=== PATIENT | male | born 1980 | race African-American/Black ===

== ENCOUNTER → 2018-06-20 | Outpatient (CLI) | payer OTHER ==
[~2018-06-20] MED LIST: ALBU2.5V8 INH; AMLO1CAP15 PO; BUPR200T PO; DOCU100C28 PO; DOXY100C2 PO; EMTR1TAB12 PO; ERGO500027 PO; FEXO180T16 PO; FLUT16SP NS; MELO15TA23 PO; POLY255P11 PO; TOPI100T8 PO; TRAZ-118 PO
--- NOTE | 2018-06-21 13:30 | PAIN ---
DATE OF SERVICE: 06/20/2018 INITIAL CONSULTATION FOR PAIN CLINIC CHIEF COMPLAINT: Neck and bilateral upper extremities pain. HISTORY OF PRESENT ILLNESS: This is a 38-year-old male who presents today with history of pain in the base of neck, bilateral upper extremities for many years, worse over the past one year or so without any specific injury or action he is aware of, but a lot of wear and tear as he puts it over the years. The patient is active , reports this has exacerbated the pain significantly as well and he has had some injuries to the shoulders with a rotator cuff repair on the right. The patient reports main pain now is at the base of the neck and upper extremities radiating to bilateral upper extremities in a radicular fashion into the arms, mostly in the biceps and forearms anteriorly, some in the posterior deltoid as well. Pain in the hands, there is numbness and tingling in both of the hands, difficulty using fine motor movements, also had been dropping items especially with this right hand with no overt motor loss, but significant weakness, fatigability. The patient reports pain is constant, sharp, stabbing, shooting, throbbing with numbness and radiating as noted, intermittent in intensity, but is present all the time. The patient reports it is cramping, aching. Also, has a cold sensation in the arms and hands as well as the base of the neck and shoulders. The patient reports it awakens him from sleep at least 4 times a night and does affect his ability to walk at times also. The patient has had physical therapy; he has done chiropractic treatment as well without significant improvement and is over here with symptoms in the last few months. The patient did have an MRI scan, which is pending at time of this dictation, but the patient's referring physician has narrative showing multiple levels of degenerative joint disease and degenerative disk disease in the cervical and thoracic spine. The patient reports a disability rate from 0-10, 10 being the worst, is 6 with family and home responsibilities, social activity, self-care and life support activities, 7 with recreation, occupation and sexual behavior. The patient reports again no loss of motor function with significant fatigability of the upper extremities with activity, better with sitting, lying and resting or putting his arm on the arm of the chair or to his sides when reclining or lying down. PAST MEDICAL HISTORY: Significant for hypertension, shortness of breath, hearing aids bilaterally, arthritis, headaches, HIV positive and current syphilis. PREVIOUS SURGERY: Include right shoulder rotator cuff repair in 2017 and a lipoma excision of the forehead in the past. CURRENT MEDICATIONS: Complete full and well documented on the patient's chart. FAMILY HISTORY: Significant for no major medical problems or conditions that he lists. SOCIAL HISTORY: The patient does not drink alcohol, does not smoke. Denies any illegal, illicit or recreational drugs. 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 REVIEW OF SYSTEMS: The patient's review of systems is positive for those items mentioned in history of present illness. All systems reviewed and otherwise negative. It is complete, full and well documented on the patient's chart. PHYSICAL EXAMINATION: VITAL SIGNS: The patient's blood pressure is 138/95, pulse 100, respirations 18, temperature 98.2 degrees Fahrenheit, height 71 inches, weight is 219 pounds. GENERAL: The patient is awake, alert, oriented, appropriate, very pleasant demeanor. HEENT: Head is normocephalic, atraumatic. Extraocular movements are intact and symmetrical. Oral cavity: Mucous membranes moist and pink. Dentition is intact. NECK: Shows anterior throat supple without palpable lymphadenopathy noted. Swallow reflex symmetrical. CHEST: Shows normal on inspection. Breath sounds clear to auscultation bilaterally. HEART: Shows S1, S2 clear. No murmurs auscultated. ABDOMEN: Soft, nontender, nondistended. No palpable organomegaly is noted. No rebound or guarding demonstrated. BACK: Shows spine grossly in the midline. Normal-appearing thoracic kyphosis and cervical lordotic curvature. Cervical paraspinous muscle shows symmetrical on inspection, with palpation shows some moderate tenderness diffusely bilaterally, but only diffusely without radiation. The patient has good rotational motion of cervical spine, both laterally greater than 45 degrees right and left with little bit of extension and full forward flexion without significant disability or limitation or pain reported. The patient's upper extremities show deep tendon reflexes at 2+ in the biceps and triceps tendons. Motor exam is strong with 5/5 composite assembler strength, bicep and tricep flexion and symmetrical. Peripheral pulses are 2+ radial distribution. No peripheral edema is noted. Upper extremities are warm and dry to touch, equal in color and appearance. Shoulder shrug is strong and intact without loss of strength on resistance as is abduction of shoulder to 90 degrees without loss of strength on resistance as well, but moderate tenderness, more on the left than the right with resistance, but without significant loss of strength. The patient's skin shows warm and dry, good turgor. No edema. No sores, rashes or bruising throughout. IMPRESSION: 1. This is a 38-year-old male with long history of pain in the base of the neck, bilateral upper extremities, somewhat worse on the right than the left. 2. MRI scan of cervical spine, again pending at the time of this dictation. 3. Hypertension. 4. Arthritis. 5. Human immunodeficiency virus positive. PLAN: Options were discussed with the patient including conservative medical management, continued physical therapies and interventional techniques. He would like to pursue interventional techniques. We discussed a cervical epidural steroid injection using description as well as anatomical models to describe the procedure. The patient will wait for preauthorization with insurance provider and have him return in approximately 1 week. We will plan on cervical epidural steroid injection at that time. We discussed a possible Medrol Dosepak as well as other medications. The patient would like to wait and simply have the injection approved and return for that. The patient will continue with physical therapy exercises, stretching and strengthening in the meantime and return as scheduled. AMBIKA GARCIA MD DR: TAO/lee ann JOB#: [id number] / [id number]
== END | disposition home or self-care (01) ==
LOC: PNCL 12:39
PROVIDERS: ATTEND Anesthesiology
DX: M54.2 Cervicalgia (principal); M79.641 Pain in right hand; M79.642 Pain in left hand; R20.0 Anesthesia of skin; R20.2 Paresthesia of skin; I10 Essential (primary) hypertension; M19.90 Unspecified osteoarthritis, unspecified site; Z21 Asymptomatic human immunodeficiency virus [HIV] infection status
CPT/HCPCS: G0463

== ENCOUNTER → 2018-07-04 | Outpatient (CLI) | payer OTHER ==
[~2018-07-04] MED LIST changes: +IOHEXOL 180 MG/ML 10 ML VIAL. ONE; +methylPREDNISolone ACETATE 40 MG/ML VIAL. ONE; +methylPREDNISolone ACETATE 80 MG/ML VIAL. ONE
--- NOTE | 2018-07-05 04:25 | PAIN ---
DATE OF SERVICE: 07/04/2018 DIAGNOSES: Cervical radiculopathy with cervical degenerative disk disease. HISTORY OF PRESENT ILLNESS: The patient is a 38-year-old male who returns for followup status post initial evaluation and preauthorization for cervical epidural steroid injection. The patient has achieved this and would like to proceed today. The patient reports pain in the base of neck, bilateral upper extremities and shoulders as well as in the mid upper back as well. The patient reports it is an aching, sharp, dull, tight, shooting, tingling, cramping at times, stabbing, sometimes constant, but sometimes on and off. The patient reports it is 7 on a scale of 10 at all times, average, worst and least and is 7 on a scale of 10 today. The patient reports no new motor or sensory deficits, no new bowel or bladder incontinence, has been waking her from sleep at night, fairly frequently. PHYSICAL EXAMINATION: VITAL SIGNS: The patient's blood pressure 135/83, pulse 90, respirations 18, temperature 98.2 degrees Fahrenheit, height is 71 inches, weight is 219 pounds. GENERAL: The patient is awake, alert, oriented, appropriate, very pleasant demeanor. HEENT: Head shows normocephalic, atraumatic. Extraocular movements are intact and symmetrical. Oral cavity: Mucous membranes are moist and pink. Dentition is intact. NECK: Shows anterior throat supple without palpable lymphadenopathy noted. Swallow reflex symmetrical. CHEST: Shows normal on inspection. Breath sounds clear to auscultation bilaterally. HEART: Shows S1, S2 clear. No murmurs auscultated. ABDOMEN: Soft, nontender, nondistended. No palpable organomegaly is noted. No rebound or guarding demonstrated. BACK: Shows spine grossly in the midline, normal-appearing cervical lordotic curvature and thoracic kyphotic curvature. Cervical paraspinous muscle shows symmetrical on inspection, on palpation shows some [id number] tenderness in the inferior aspect of the cervical paraspinous muscles bilaterally, but only diffusely without radiation. The patient has good rotational motion of cervical spine, both laterally greater than 45 degrees closer to 90 degrees right and left as well as full extension, full forward flexion without difficulty. EXTREMITIES: Upper extremities show deep tendon reflexes 2+ in the biceps, triceps tendons. Motor exam is 5/5 equal with business intelligence etl developer strength, bicep and tricep flexion is symmetrical. Peripheral pulses are 2+ radial distribution. No peripheral edema is noted. Options were discussed with the patient. The patient's old chart was reviewed as well as his current medication regimen updated. Current review of systems updated today as well. We will proceed with a cervical epidural steroid injection today as the first in the series with fluoroscopic guidance. Risks were again discussed including, but not limited to bleeding, infection, possibility of epidural hematoma, subsequent neurological compromise, dural puncture, headaches, spinal cord and/or nerve damage, side effects of steroid medication and poor results regarding pain control. The patient understands and wished to proceed. The patient will return to clinic in approximately 2 weeks for followup, was counseled as to return appointment, activity level and side effects to be aware of. DIAGNOSES: Cervical radiculopathy with cervical degenerative disk disease. PROCEDURE: Cervical epidural steroid injection, translaminar approach C6-C7 level using C-arm fluoroscopic guidance under sterile prep and drape using local anesthetic. MEDICATION INJECTED: A total of 120 mg Depo-Medrol plus 5 mL of preservative-free normal saline and 2 mL of Isovue for contrast. CONDITION AT DISCHARGE: Stable. The patient tolerated procedure well, had no complications. AMBIKA GARCIA MD DR: TAO/lee ann JOB#: [id number] / [id number]
== END | disposition home or self-care (01) ==
LOC: PNCL 12:53
PROVIDERS: ATTEND Anesthesiology
DX: M50.123 Cervical disc disorder at C6-C7 level with radiculopathy (principal); Z88.2 Allergy status to sulfonamides; Z91.040 Latex allergy status
CPT/HCPCS: 62321; J1030; J1040; Q9965

== ENCOUNTER → 2018-07-18 | Outpatient (CLI) | payer OTHER ==
[~2018-07-18] MED LIST changes: -IOHEXOL 180 MG/ML 10 ML VIAL. ONE; -methylPREDNISolone ACETATE 40 MG/ML VIAL. ONE; -methylPREDNISolone ACETATE 80 MG/ML VIAL. ONE
--- NOTE | 2018-07-19 01:17 | PAIN ---
DATE OF SERVICE: 07/18/2018 DIAGNOSES: Cervical radiculopathy with cervical degenerative disk disease. HISTORY OF PRESENT ILLNESS: The patient is a 38-year-old male who returns for followup status post cervical epidural steroid injection x 1. The patient reports about 50% improvement in the base of neck and shoulder, still having some pain in the mid upper back; however, which is main complaint, very tight, firm. The patient has been putting heat on it, doing massage therapies, nothing really helping. The patient reports the pain is a 7 on a scale of 10 over the last week, its average, its worse and its least and is a 7 today. The patient reports it is aching, dull, tight and becoming more constant with activity, worse with standing, walking, better with lying down, but does awaken him from sleep fairly frequently, about 3-4 times at night. The patient reports the back is becoming more noticeable than the neck. The neck is improved by about 50%. The patient reports still some pain and radiation to the upper extremities, in the shoulders, but not as far into the arms at this time. The patient reports no new motor or sensory deficits. No new bowel or bladder incontinence or other complaints. PHYSICAL EXAMINATION: VITAL SIGNS: The patient's blood pressure is 125/97, pulse 93, respirations 18, temperature 98.3 degrees Fahrenheit, height is 71 inches, weight is 222 pounds. GENERAL: The patient is awake, alert, oriented, appropriate, very pleasant demeanor. HEENT: Shows normocephalic, atraumatic. Extraocular movements are intact and symmetrical. Oral cavity: Mucous membranes moist and pink. Dentition is intact. NECK: Shows anterior throat supple without palpable lymphadenopathy noted. Swallow reflex is symmetrical. CHEST: Shows normal on inspection. Breath sounds are clear to auscultation bilaterally. HEART: Shows S1, S2 clear. No murmurs auscultated. ABDOMEN: Soft, nontender, nondistended. No palpable organomegaly is noted. No rebound or guarding demonstrated. BACK: Shows spine grossly in the midline. Normal appearing thoracic kyphosis and lumbar lordotic curvature as well as cervical lordotic curvature. Cervical paraspinous muscle shows symmetrical on inspection. With palpation shows some moderate tenderness diffusely in the inferior aspect of the cervical paraspinous muscles as well as the superior and medial trapezius and lateral trapezius, more on the right than the left. The patient's thoracic spine shows very firm musculature throughout the middle and lower distribution of the thoracic paraspinous muscles, which are very firm and rope-like with some moderate trigger point areas in the musculature at this point as well. The patient has good rotational motion of the neck, both laterally greater than 45 degrees, closer to 90 degrees right and left as well as full extension, full forward flexion without significant pain reported. EXTREMITIES: Upper extremities show deep tendon reflexes 2+ in the biceps and triceps tendons. Motor exam is strong with plant health manager strength rated at 5/5, as is bicep and tricep flexion and symmetrical bilaterally. Peripheral pulses are 2+ radial distribution. No peripheral edema is noted. Options were discussed with the patient. The patient's old chart was reviewed as was his current medication regimen updated. Current review of systems is updated today as well and we will preauthorize the patient for a second cervical epidural steroid injection as she had about 50% improvement with first one, with still some pain radiating to bilateral upper extremities, mainly in the shoulders and base of the neck, also encouraged the patient to maintain stretching and strengthening exercises, maintain activity, maintain heat and massage therapies to the mid upper back as well. Also, we will wait for patient's preauthorization. The patient will return in approximately 1 week to plan on cervical epidural steroid injection #2 at that time. AMBIKA GARCIA MD DR: TAO/lee ann JOB#: [id number] / [id number]
== END | disposition home or self-care (01) ==
LOC: PNCL 12:44
PROVIDERS: ATTEND Anesthesiology
DX: M50.10 Cervical disc disorder with radiculopathy, unspecified cervical region (principal)
CPT/HCPCS: G0463

== ENCOUNTER → 2018-07-27 | Outpatient (CLI) | payer OTHER ==
[~2018-07-27] MED LIST changes: +IOHEXOL 180 MG/ML 10 ML VIAL. ONE; +methylPREDNISolone ACETATE 40 MG/ML VIAL. ONE; +methylPREDNISolone ACETATE 80 MG/ML VIAL. ONE
--- NOTE | 2018-07-28 01:59 | PAIN ---
DATE OF SERVICE: 07/27/2018 PROGRESS NOTE FOR PAIN CLINIC DIAGNOSES: Cervical radiculopathy with cervical degenerative disk disease. HISTORY OF PRESENT ILLNESS: The patient is a 38-year-old male who returns for followup status post cervical epidural steroid injection x 1, with about 50% to 60% improvement. The patient reports the pain is returning. We had him preauthorize for a second injection today, which he has obtained and would like to proceed with that. The patient reports still significant pain in the base of the neck and shoulders bilaterally, essentially right equal to left at this time; worse with activity, carrying items, lifting things or reaching above his head with his arms. The patient reports it awakens him from his sleep, but only about once every 6 hours. The patient reports his pain is a 7 on a scale of 10 over the past week at its worst, average and its least and is a 7 today. The patient reports it is aching, dull, tight, shooting, becoming more constant, tingling in the shoulders and arms as well as the upper extremities and becoming more noticeable. The patient reports no new motor or sensory deficits, no new bowel or bladder incontinence or other complaints. PHYSICAL EXAMINATION: VITAL SIGNS: The patient's blood pressure 133/80, pulse 101, respirations 18 and temperature 98.0 degrees Fahrenheit. Height is 71 inches, weight is 218 pounds. GENERAL: The patient is awake, alert, oriented and appropriate. He has a very pleasant demeanor. HEENT EXAMINATION: Shows normocephalic, atraumatic. Extraocular movements are intact and symmetrical. Oral cavity, mucous membranes are moist and pink. Dentition is intact. NECK: Shows anterior throat supple, without palpable lymphadenopathy noted. Swallow reflex is symmetrical. CHEST: Shows normal on inspection. Breath sounds are clear to auscultation bilaterally. HEART: Shows S1, S2 clear. No murmurs auscultated. ABDOMEN: Soft, nontender and nondistended. No palpable organomegaly is noted. No rebound or guarding demonstrated. BACK: Shows spine grossly in the midline. Normal-appearing thoracic kyphosis and lumbar lordotic curvature. Cervical paraspinous muscle shows symmetrical on inspection. With palpation, it shows some moderate tenderness inferiorly in the cervical paraspinous muscles as well as the superior medial trapezius bilaterally, but only with deeper palpation. The patient has good rotational motion of the lumbar spine with good rotation past 45 degrees, right and left as well as extension and forward flexion, without significant pain reported. EXTREMITIES: The patient's upper extremities show deep tendon reflexes 2+ in the biceps and triceps tendons. Motor exam is strong with 5/5 printed circuit board panels trimmer strength, bicep and tricep flexion and are essentially equal. Peripheral pulses are 2+ radial distribution. No peripheral edema is noted bilaterally. Options were discussed with the patient. The patient's old chart was reviewed as was his current medication regimen updated. Current review of systems updated today as well. We will proceed with a second in the series of cervical epidural steroid injection today with fluoroscopic guidance. Risks were again discussed including, but not limited to bleeding, infection, possibility of epidural hematoma, subsequent neurologic compromise, dural puncture, headaches, spinal cord and/or nerve damage, side effects to steroid medication and poor results regarding pain control. The patient understands and wishes to proceed. The patient will return to the clinic in approximately 2 weeks for followup. He was counseled on his return appointment, activity level and side effects to be aware of. DIAGNOSES: Cervical radiculopathy with cervical degenerative disk disease. PROCEDURE: Cervical epidural steroid injection in a translaminar approach at the C6-C7 level using C-arm fluoroscopic guidance under sterile prep and drape using local anesthetic. MEDICATION INJECTED: A total of 120 mg Depo-Medrol plus 5 mL of preservative-free normal saline and 2 mL of contrast. CONDITION AT DISCHARGE: Stable. The patient tolerated the procedure well, had no complications. AMBIKA GARCIA MD DR: TAO/nts JOB#: [id number] / [id number]
== END | disposition home or self-care (01) ==
LOC: PNCL 12:52
PROVIDERS: ATTEND Anesthesiology
DX: M50.123 Cervical disc disorder at C6-C7 level with radiculopathy (principal); Z88.2 Allergy status to sulfonamides; Z91.040 Latex allergy status
CPT/HCPCS: 62321; J1030; J1040; Q9965

== ENCOUNTER → 2018-08-22 | Outpatient (CLI) | payer OTHER ==
[~2018-08-22] MED LIST changes: -IOHEXOL 180 MG/ML 10 ML VIAL. ONE; -methylPREDNISolone ACETATE 40 MG/ML VIAL. ONE; -methylPREDNISolone ACETATE 80 MG/ML VIAL. ONE
--- NOTE | 2018-08-22 19:15 | PAIN ---
DATE OF SERVICE: 08/22/2018 DIAGNOSES: 1. Cervical radiculopathy with cervical degenerative disk disease. 2. Myofascial pain. HISTORY OF PRESENT ILLNESS: The patient is a 38-year-old male who returns for followup status post cervical epidural steroid injections x 3. The patient reports about 85% improvement of the neck and right shoulder pain. He is very pleased with his progress thus far, but his main complaint today is midback and low back pain. We had discussed this with him briefly on his last visit, but his pain is much more noticeable now that his neck is doing quite a bit better. 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 The patient reports the pain is aching. It is tingling, aching, sharp, dull, shooting and becoming more constant, worse with standing, walking, sitting, awakens him from sleep frequently, hence is constantly trying to get in a comfortable position, generally unable to do so. The patient has tried chiropractic help, also tried physical therapies without significant improvement in pain. The patient reports no new motor or sensory deficits, rates his pain on the last week in his mid and low back as a 7 on a scale of 10 at the worst, 7 on average, 7 at its least and is a 7 today. The patient reports no loss of motor function. No new bowel or bladder incontinence or other complaints. PHYSICAL EXAMINATION: VITAL SIGNS: The patient's blood pressure is 146/61, pulse is 77, respirations are 16, temperature is 98.4 degrees Fahrenheit, height is 71 inches, weight is 222 pounds. GENERAL: The patient is awake, alert, oriented, appropriate, very pleasant demeanor. HEENT: Shows normocephalic, atraumatic. Extraocular movements are intact and symmetrical. Oral cavity: Mucous membranes are moist and pink. Dentition is intact. NECK: Shows anterior throat supple without palpable lymphadenopathy noted. Swallow reflex is symmetrical. CHEST: Shows normal on inspection. Breath sounds are clear to auscultation bilaterally. HEART: Shows S1, S2 clear. No murmurs auscultated. ABDOMEN: Soft, obese, nontender, nondistended. BACK: Shows spine grossly in the midline. Cervical paraspinous muscle shows symmetrical on inspection. With palpation shows some mild tenderness in the inferior aspect of the cervical paraspinous muscles, slightly more on the right than the left, but present bilaterally without significant trigger points or radiation. The patient has good rotational motion of cervical spine both laterally as well as extension and flexion without difficulty. The patient's thoracic spine shows normal thoracic kyphosis and lumbar lordotic curvature is normal as well. With palpation, there is significant tenderness, very firm rope-like musculature consistent with trigger point areas of muscle in the mid thoracic and low thoracic as well as the bilateral right greater than left lumbar paraspinous musculature throughout with very firm rope-like musculature consistent with trigger point areas of muscle as well, but without specific radiation. The patient shows good rotational motion of lumbar spine with some minor tenderness with extension and also minor tenderness with forward flexion. Right and left lateral rotations performed at 10 degrees right and left without significant increase in pain. EXTREMITIES: The patient's upper extremities show deep tendon reflexes 2+ in the biceps and triceps tendons. Motor exam is strong with self contained behavior unit teacher strength rated at 5/5. Lower extremities show deep tendon reflexes 2+ in the patellar, 1+ tendo calcaneus tendons. Motor exam is strong with 5/5 dorsiflexion and extension. Options were discussed with the patient. The patient's old chart was reviewed as was his current medication regimen updated. Current review of systems is updated today as well. We will preauthorize the patient for trigger point injections of the myofascial thoracic paraspinous muscles as well as lumbar paraspinous musculature bilaterally. The patient in the meantime will continue with strengthening and stretching exercises, also heat application in the mid and low back. I will await for preauthorization and plan on trigger point injections on his return. AMBIKA GARCIA MD DR: TAO/lee ann JOB#: [id number] / [id number]
== END | disposition home or self-care (01) ==
LOC: PNCL 12:51
PROVIDERS: ATTEND Anesthesiology
DX: M50.10 Cervical disc disorder with radiculopathy, unspecified cervical region (principal); M54.5 Low back pain; M79.18 Myalgia, other site
CPT/HCPCS: G0463